=== PATIENT | male | born 1995 | race Caucasian/White ===

== ENCOUNTER 2019-01-24 22:58 | Emergency (ER) | payer SELFPAY ==
[~2019-01-24] VITALS: Ht 172.7 cm; Wt 81.6 kg
[2019-01-24 23:00] VITALS: BP 124/78
[2019-01-24] MEDS ORDERED: LIDOCAINE MPF 1% 10 MG/ML VIAL INJ ONE (23:40)
[2019-01-25] MEDS ORDERED: LIDOCAINE MPF 1% 10 MG/ML VIAL INJ ONE
[2019-01-25 01:08] VITALS: BP 132/74
== END 2019-01-25 01:08 | disposition home or self-care (01) ==
LOC: MED 22:58
DX: S61.411A Laceration without foreign body of right hand, initial encounter (principal); W27.8XXA Contact with other nonpowered hand tool, initial encounter; Y93.89 Activity, other specified; Y92.89 Other specified places as the place of occurrence of the external cause; Y99.8 Other external cause status
CPT/HCPCS: 12002; 99283; J2001